=== PATIENT | female | born 1980 | race Caucasian/White ===

== ENCOUNTER 2018-03-09 16:44 | Emergency (ER) | payer OTHER, MEDICARE ==
[~2018-03-09 16:44] MED LIST: ADIPEX-P37.5 MG PO; SYNTHROID100 MCG PO; ULTRAM50 MG PO
[2018-03-09] MEDS ORDERED: KETOROLAC TROMETHAMINE 30 MG/ML VIAL IV STA (17:23)
[2018-03-09] MEDS ORDERED: SODIUM CHLORIDE 0.9% 1000ML 1,000 ML IV SCH (17:30)
[2018-03-09] MEDS ORDERED: LISINOPRIL10 MG PO (18:23)
[2018-03-09 18:41] VITALS: BP 132/88
== END 2018-03-09 18:40 | disposition home or self-care (01) ==
LOC: FSED 16:44
DX: G43.109 Migraine with aura, not intractable, without status migrainosus (principal); R07.9 Chest pain, unspecified; Z88.0 Allergy status to penicillin; Z82.49 Family history of ischemic heart disease and other diseases of the circulatory system
CPT/HCPCS: 70450; 71045; 71046; 80048; 80053; 80307; 81003; 82553; 85025; 85610; 96360; 99284; J1885